=== PATIENT | female | born 1985 | race Caucasian/White ===

== ENCOUNTER 2019-02-16 16:05 | Outpatient (CLI) | payer OTHER ==
[~2019-02-16 16:05] MED LIST: PRENATAL PO
[2019-02-16 18:06] LABS: THYROID STIMULATING HORMONE 1.46 uIu/mL (0.34-4.82)
[2019-02-18 08:13] LABS: FOLLICLE STIMULATION HORMONE 1.1 mIU/mL (.); LUETENIZING HORMONE 1.6 mIU/mL (.); PROLACTIN 15.5 ng/mL (4.8-23.3)
== END 2019-02-16 20:07 | disposition home or self-care (01) ==
LOC: SLB 16:05
PROVIDERS: ATTEND Specialist
DX: N91.1 Secondary amenorrhea (principal)
CPT/HCPCS: 36415; 83001; 83002; 84146; 84443-TC; 84702-TC

== ENCOUNTER 2019-07-25 19:50 | Observation (INO) | payer OTHER ==
[~2019-07-25] VITALS: Ht 160 cm; Wt 82.6 kg
[2019-07-25] MEDS ORDERED: ACETAMINOPHEN 325 MG TABLET PO PRN (21:00)
[2019-07-25] MEDS ORDERED: ACETAMINOPHEN 325 MG TABLET ONE (21:09)
== END 2019-07-26 00:20 | disposition home or self-care (01) ==
LOC: SPU 19:50
PROVIDERS: ADMIT Specialist; ATTEND Specialist
DX: O62.9 Abnormality of forces of labor, unspecified (principal); O26.892 Other specified pregnancy related conditions, second trimester; O21.2 Late vomiting of pregnancy; R10.9 Unspecified abdominal pain; R42 Dizziness and giddiness; R51 Headache; H53.8 Other visual disturbances; Z3A.26 26 weeks gestation of pregnancy
CPT/HCPCS: G0378

== ENCOUNTER 2019-10-17 06:15 | Inpatient (IN) | payer OTHER ==
[~2019-10-17] VITALS: Ht 160 cm; Wt 86.6 kg
[2019-10-17] MEDS ORDERED: LR 1,000 ML IV ONE (06:19)
[2019-10-17] MEDS ORDERED: CEFAZOLIN 2 GM IVPB PREMIX 50 ML IV ONE (06:30)
[2019-10-17] MEDS ORDERED: CITRIC ACID/SODIUM CITRATE 30 ML UDC PO ONE (06:30)
[2019-10-17 06:57] LABS: BILIRUBIN,URINE 1+ (NEGATIVE); BLOOD, URINE NEGATIVE (NEGATIVE); CLARITY/URINE CLEAR (CLEAR); COLOR,URINE YELLOW (YELLOW); GLUCOSE,URINE NEGATIVE (NEGATIVE); KETONES,URINE TRACE (NEGATIVE); LEUKOCYTE ESTERASE ,URINE TRACE (NEGATIVE); NITRITE, URINE NEGATIVE (NEGATIVE); PROTEIN URINE 2+ (NEGATIVE)
[2019-10-17 06:58] LABS: HEMATOCRIT 24.8 % (36-48); HEMOGLOBIN 7.1 g/dL (12.0-16.0); MEAN CORPUSCULAR HEMOGLOBIN 18 pg (27-31); MEAN CORPUSCULAR HGB CONC 29 % (32-36); MEAN CORPUSCULAR VOLUME 64 fL (79.0-98.0); PLATELET COUNT (AUTO) 223 K/uL (130-430); RED CELL DISTRIBUTION WIDTH 21.4 % (9.0-15.0); WHITE BLOOD COUNT (AUTO) 9.5 K/uL (4.8-10.8)
[2019-10-17 06:59] LABS: RBC,URINE 0-3 /HPF (0-3)
[2019-10-17 07:00] LABS: BACTERIA,URINE MODERATE /HPF (None Seen)
[2019-10-17] MEDS ORDERED: MORPHINE SULFATE 10MG/10ML PF AMP EP ONE (07:30)
[2019-10-17] MEDS ORDERED: ONDANSETRON HCL 4 MG/2 ML VIAL IVP ONE (07:30)
[2019-10-17] MEDS ORDERED: BUPIVACAINE /PF 0.75% 10 ML VIAL INJ ONE (07:30)
[2019-10-17] MEDS ORDERED: LR 1,000 ML IV.SOLN IV ONE (07:30)
[2019-10-17 07:34] LABS: ATYPICAL LYMPHOCYTES % 0 % (0-0); BAND % (MANUAL) 1 % (0-6); BASOPHILS % (MANUAL) 0 % (0-2); EOSINOPHILS % (MANUAL) 0 % (0-7); LYMPHOCYTES % (MANUAL) 25 % (20-46); MONOCYTES % (MANUAL) 0 % (0-11)
[2019-10-17] MEDS ORDERED: MORPHINE SULFATE 10MG/10ML PF AMP SP SCH (08:15)
[2019-10-17] MEDS ORDERED: NALBUPHINE HCL 10 MG/ML AMP IVP PRN (08:15)
[2019-10-17] MEDS ORDERED: NALOXONE HCL 0.4 MG/ML AMP (NARCAN) IVP PRN ×2 (08:15)
[2019-10-17] MEDS ORDERED: DIPHENHYDRAMINE INJ 50 MG/ML VIAL IVP PRN (08:15)
[2019-10-17] MEDS ORDERED: ONDANSETRON HCL 4 MG/2 ML VIAL IVP PRN (08:15)
[2019-10-17] MEDS ORDERED: KETOROLAC TROMETHAMINE 60 MG/2 ML VIAL IM PRN (08:15)
[2019-10-17] MEDS ORDERED: OXYTOCIN/0.9 % SODIUM CHLORIDE 1,000 ML IV SCH (08:59)
[2019-10-17] MEDS ORDERED: LR 1,000 ML IV SCH (08:59)
[2019-10-17] MEDS ORDERED: OXYCODONE/ACETAMINOPHEN 5-325 TABLET PO PRN (09:00)
[2019-10-17] MEDS ORDERED: OXYCODONE/ACETAMINOPHEN *10*mg/325 mg TABLET PO PRN (09:00)
[2019-10-17] MEDS ORDERED: DIPH-TET-PERTUS Vaccine 0.5 ML VIAL (ADACEL) I.M. PRN (09:00)
[2019-10-17] MEDS ORDERED: RHO(D) IMMUNE GLOBULIN/MALTOSE 1500 UNITS/1.3 ML (WINHRO) IM PRN (09:00)
[2019-10-17] MEDS ORDERED: HYDROcodone/ACETAMIN 5-325 MG TAB (NORCO/ VICODIN) PO PRN (09:00)
[2019-10-17] MEDS ORDERED: SENNOSIDES/DOCUSATE SODIUM 1 TAB TABLET(SENOKOT-S) PO PRN (09:00)
[2019-10-17] MEDS ORDERED: LANOLIN 7 GM OINT. TP PRN (09:00)
[2019-10-17] MEDS ORDERED: ANUSOL 1 EA SUPP.RECT (PREPARATION H) RC PRN (09:00)
[2019-10-17] MEDS ORDERED: DOCUSATE SODIUM 100 MG CAPSULE PO PRN (09:00)
[2019-10-17] MEDS ORDERED: MEASLES,MUMPS&RUBELLA VACC/PF 12500 UNIT/0.5 ML VIAL SUBQ PRN (09:00)
[2019-10-17] MEDS ORDERED: BISACODYL 10 MG/SUPPOSITORY RC PRN (09:00)
[2019-10-17] MEDS ORDERED: TEMAZEPAM 15 MG CAPSULE PO PRN (09:00)
[2019-10-17] MEDS ORDERED: ONDANSETRON HCL 4 MG/2 ML VIAL ONE (09:21)
[2019-10-17] MEDS ORDERED: METOCLOPRAMIDE HCL 10 MG/2 ML VIAL IVP ONE (09:30)
[2019-10-17] MEDS ORDERED: METOCLOPRAMIDE HCL 10 MG/2 ML VIAL ONE (09:48)
[2019-10-17] MEDS ORDERED: fentaNYL CITRATE/PF 100 MCG/2 ML AMP IVP ONE (10:00)
[2019-10-17] MEDS ORDERED: fentaNYL CITRATE/PF 100 MCG/2 ML AMP ONE (10:15)
[2019-10-17] MEDS ORDERED: OXYTOCIN/0.9 % SODIUM CHLORIDE 1,000 ML IV ONE ×2 (10:18→17:35)
[2019-10-17] MEDS: CEFAZOLIN 1 GM IVPB PREMIX 50 ML IV SCH ×2 (12:31→18:06)
[2019-10-17 17:11] VITALS: BP_SYST 131
[2019-10-17] MEDS: KETOROLAC TROMETHAMINE 30 MG VIAL IVP SCH (18:06)
[2019-10-18] MEDS: KETOROLAC TROMETHAMINE 30 MG VIAL IVP SCH ×2 (00:45→06:14)
[2019-10-18] MEDS: CEFAZOLIN 1 GM IVPB PREMIX 50 ML IV SCH (00:51)
[2019-10-18 06:51] LABS: BASOPHILS % (AUTO) 0.2 % (0.0-2.0); EOSINOPHILS # (AUTO) 0.2 K/uL (0.0-0.4); EOSINOPHILS % (AUTO) 1.2 % (0.0-4.0); LYMPHOCYTES # (AUTO) 1.7 K/uL (1.0-5.5); LYMPHOCYTES % (AUTO) 12.1 % (20.5-51.5); MEAN CORPUSCULAR HEMOGLOBIN 18 pg (27-31); MEAN CORPUSCULAR HGB CONC 28 % (32-36); MEAN CORPUSCULAR VOLUME 65 fL (79.0-98.0); MONOCYTES # (AUTO) 0.4 K/uL (0.0-1.0); MONOCYTES % (AUTO) 2.6 % (1.7-9.3); NEUTROPHILS # (AUTO) 11.7 K/uL (1.8-7.7); NEUTROPHILS % (AUTO) 83.9 % (40.0-70.0); PLATELET COUNT (AUTO) 236 K/uL (130-430); RED BLOOD CELL COUNT(AUTO) 3.24 MIL/uL (4.2-6.2); RED CELL DISTRIBUTION WIDTH 21.7 % (9.0-15.0); WHITE BLOOD COUNT (AUTO) 13.9 K/uL (4.8-10.8)
[2019-10-18 07:25] LABS: HEMATOCRIT 21.1 % (36-48); HEMOGLOBIN 5.9 g/dL (12.0-16.0)
[2019-10-18] MEDS: FERROUS SULFATE 325 MG TABLET.DR PO SCH ×3 (08:45→21:00)
[2019-10-18] MEDS ORDERED: IBUPROFEN 600 MG TABLET PO SCH ×2 (12:00→18:00)
[2019-10-18] MEDS: IBUPROFEN 600 MG TABLET PO SCH ×3 (12:13→23:58)
[2019-10-18] MEDS: SIMETHICONE 80 MG TAB.CHEW PO PRN ×2 (12:18→15:07)
[2019-10-19] MEDS: IBUPROFEN 600 MG TABLET PO SCH ×3 (05:57→17:57)
[2019-10-19] MEDS: FERROUS SULFATE 325 MG TABLET.DR PO SCH ×2 (12:08→17:57)
== END 2019-10-19 20:10 | disposition home or self-care (01) | DRG 788 ==
LOC: SPU 06:15
PROVIDERS: ADMIT Specialist; ATTEND Specialist
PROC: 10D00Z1 Extraction of Products of Conception, Low, Open Approach (ICD-10-PCS; principal; 2019-10-18)
DX: O34.211 Maternal care for low transverse scar from previous cesarean delivery (principal); D64.9 Anemia, unspecified; O99.02 Anemia complicating childbirth; N73.6 Female pelvic peritoneal adhesions (postinfective); O99.89 Other specified diseases and conditions complicating pregnancy, childbirth and the puerperium; Z37.0 Single live birth; Z3A.38 38 weeks gestation of pregnancy
CPT/HCPCS: 36415; 81000-TC; 85007; 85025; 85027; 86592; 86886; 86900; 86901; 86920; 94760; J0690; J1200; J1885; J2274; J2405; J2590; J2765; J3010; J3490; J7120